=== PATIENT | female | born 1975 | race American Indian/Alaskan Native ===

== ENCOUNTER → 2017-10-22 | Outpatient (CLI) | payer OTHER ==
[~2017-10-22] MED LIST: PANT20TA PO; PANT40TA2 PO; PRENTAB9 PO; RANI150T PO; VALT1TAB PO; ZANTTAB PO
--- NOTE | 2017-10-22 15:06 | REPMRS ---
Patient History The patient states she has not had a clinical breast exam in over a year. No known family history of cancer. Pre-pectoral silicone gel implants in both breasts, put in 10 years ago Digital Mammo Screening Bilat: October 22, 2017 - Exam #: [id number] Bilateral CC and MLO view(s) were taken. Technologist: Chaparrita Olivares Technologist FINDINGS: There are scattered fibroglandular densities. There is no evidence of cancer on this mammogram. Bilateral implants appear intact. ASSESSMENT: BI-RADS/ACR category 2 mammogram. Benign finding(s). Recommendation Routine screening mammogram of both breasts in 1 year (for women over age 40). This mammogram was interpreted with the aid of an FDA-approved computer-aided dectection system. Electronically Signed By: Ronald Banda MD 10/22/17 [id number]
== END ==
LOC: M RAD 13:38
PROVIDERS: ATTEND Physician Assistant
DX: Z12.31 Encounter for screening mammogram for malignant neoplasm of breast (principal); Z98.82 Breast implant status